=== PATIENT | male | born 1960 | race Caucasian/White ===

== ENCOUNTER 2017-04-05 11:03 | Inpatient (IN) | payer BC ==
[2017-04-05 12:16] LABS: Troponin I 0.015 ng/mL (< 0.028)
[2017-04-05 12:24] LABS: Actual Bicarbonate (HCO3a) 29.7 mEq/L (22-26); Base Excess (BEa) -0.5 mEq/L (0 (+/-) 2.5); Calcium, Ionized 1.2 mmol/L (1.12-1.30); Hematocrit-ABG 50.7 % (42.0-52.0); Hemoglobin (Hb) 15.5 g/dL (14.0-18.0); O2 Tension (PaO2) 141.9 mmHg (80.0-100.0); pH, Arterial 7.22 (7.35-7.45)
[2017-04-05 12:25] LABS: ALV-art Gradient 124.975 (0-20); Analyzer IN Cardio ER; CO2 Tension 74.9 mmHg (35.0-45.0); Puncture Site RRA
[2017-04-05] MEDS ORDERED: Oseltamivir 75 MG CAP PO SCH (13:00)
[2017-04-05] MEDS ORDERED: Acetaminophen 325 MG TAB PO PRN ×2 (13:24→13:51)
[2017-04-05] MEDS ORDERED: Ondansetron ODT 4 MG TAB SL PRN (13:24)
[2017-04-05] MEDS ORDERED: Ondansetron HCl/PF 4 MG/2 ML Vial IVP PRN ×2 (13:24→13:51)
[2017-04-05] MEDS ORDERED: Ondansetron ODT 4 MG TAB PO PRN (13:51)
[2017-04-05] MEDS ORDERED: Bisacodyl 5 MG TAB PO PRN (13:51)
[2017-04-05] MEDS ORDERED: Acetaminophen 650 MG Suppository PR PRN (13:51)
[2017-04-05 14:08] LABS: Actual Bicarbonate (HCO3a) 29.3 mEq/L (22-26); Base Excess (BEa) -0.5 mEq/L (0 (+/-) 2.5); Calcium, Ionized 1.1 mmol/L (1.12-1.30); Hematocrit-ABG 50.6 % (42.0-52.0); Hemoglobin (Hb) 15.3 g/dL (14.0-18.0); O2 Tension (PaO2) 82.5 mmHg (80.0-100.0)
[2017-04-05 14:13] LABS: pH, Arterial 7.23 (7.35-7.45)
[2017-04-05 14:14] LABS: CO2 Tension 71.8 mmHg (35.0-45.0)
[2017-04-05 14:15] LABS: Puncture Site RRA
[2017-04-05 14:26] VITALS: BMI 35.9
[2017-04-05] MEDS ORDERED: cefTRIAXone\\ROCEPHIN 1 GM in Sodium Chloride 0.9% 100 ML IVPB SCH (14:45)
[2017-04-05] MEDS ORDERED: Acetaminophen 500 MG TAB PO PRN (15:54)
[2017-04-05] MEDS: cefTRIAXone\\ROCEPHIN 1 GM, Syringe 0.4 ML in Sterile Water 9.6 ML SLOW IVP SCH (16:04)
[2017-04-05] MEDS: Azithromycin 500 MG in Sodium Chloride 0.9% 250 ML 250 ML IVPB SCH (16:10)
[2017-04-05] MEDS: Sodium Chloride 0.9% 1,000 ML IV SCH ×2 (16:11→21:10)
--- NOTE | 2017-04-05 17:57 | HP ---
PRIMARY CARE PHYSICIAN: Dr. Salmon. CHIEF COMPLAINT: Trouble breathing. HISTORY OF PRESENT ILLNESS: This is a 57-year-old white male without significant past medical history aside some bronchitis episodes more than 10 years ago that required inhalers. He reports that he has been feeling bad for about a week with increasing cough, eventually productive of real thick yellow sputum, and for the last 2-3 days, he had significant shortness of breath. He did start spiking fevers last couple days up to 101. The patient was unable to sleep last night secondary to difficulty breathing, so this morning he went in to the emergency room in [place]. There, he was found to be hypoxic with oxygen saturation in the 60s on room air and diffusely wheezing. He was given multiple nebulizer treatments as well as oxygen. He had a negative chest x-ray , positive influenza A, and he was transferred here for further management. In our emergency room, he was put on BiPAP with improvement in shortness of breath and feeling a lot less fatigued from struggling to breathe. His ABG done in the emergency room did show respiratory acidosis with CO2 retention. This was done after about 15 minutes on the BiPAP. The patient has had more nebs. Here he also had steroids. He had a dose of Zosyn and now he is getting his first dose of Tamiflu here in the MICU. The patient reports now he just feels really sleepy, but otherwise he is feeling much better. He did not get any sleep last night. PAST MEDICAL HISTORY: The patient denies though son reports that he does seem to stop breathing when he is sleeping if he tries to lay flat, so he may have some obstructive sleep apnea. PAST SURGICAL HISTORY: None. SOCIAL HISTORY: The patient smokes 3/4 to 1 pack a day for the last 30 years. No alcohol or illicit drug use. He is and lives with his . He is accompanied by son in the emergency room. He is employed by [employer]. FAMILY HISTORY: Dad and brother with alcoholism. ALLERGIES: No known drug allergies. MEDICATIONS: No regular medications. REVIEW OF SYSTEMS: CONSTITUTIONAL: No fevers and chills as per HPI. He has also had some headaches when he had the fever. EYES: No double vision or blurred vision. He has had some redness and drainage along with the other flu symptoms. ENT: Some mild nasal drainage and no sore throat. CARDIOVASCULAR: No chest pain. No palpitations or racing. HEART: He was noted to have tachycardia in the emergency room. PULMONARY: See HPI. GASTROINTESTINAL: No abdominal pain, no nausea or vomiting, no diarrhea or constipation. GENITOURINARY: No dysuria or hematuria. MUSCULOSKELETAL: He had some vague muscle aches, none currently. No neck pain. SKIN: No rashes or lesions noted. NEUROLOGIC: No numbness, tingling or focal weakness. PHYSICAL EXAMINATION: VITAL SIGNS: Blood pressure 130/85, pulse 123, respirations 23 on BiPAP, temperature 98.8, O2 sat ranging between 86% and 92% on BiPAP, 30% oxygen. GENERAL: This is a well-developed, obese white male, in no acute respiratory distress on BiPAP currently. He is a little somnolent, but arousable and oriented. HEENT: Pupils equal, round, and reactive to light. He does have a pink conjunctival injection bilaterally. Oropharynx with BiPAP mask on, so unable to further evaluate. NECK: Supple, no lymphadenopathy, no thyroid nodules or enlargement. HEART: Tachycardia with regular rhythm. No murmurs, rubs or gallops. LUNGS: Diffuse wheezing throughout and decreased breath sounds throughout. It is very tight sounding. ABDOMEN: Soft, nontender to palpation, normoactive bowel sounds, no hepatosplenomegaly or other masses. EXTREMITIES: No clubbing, cyanosis or edema. SKIN: No rashes or other lesions noted. NEUROLOGIC: The patient moves all extremities with equal strength. He has no facial droop. PSYCHIATRIC: Alert and oriented x3, normal mood and affect. LABORATORY DATA: CBC notable only for white blood cell count of 11.2 with 83% neutrophils. Coagulation profile normal except for a D-dimer 0.62. ABG done in our emergency room on BiPAP shows a pH of 7.22, pCO2 of 74.9, pO2 of 141, this is on 50% oxygen at that time. A complete metabolic panel was notable only for glucose of 130. The rest is normal. Cardiac marker set negative x2. Brain natriuretic peptide is negative. Lactic acid is negative. Chest x-ray, I did review the chest x-ray done in the [place] [facility] along with the radiologist's report, shows a normal cardiac silhouette, no infiltrates, no other abnormalities other than question of prominent hilar vasculature. ASSESSMENT AND PLAN: 1. Acute hypoxic hypercapnic respiratory failure, improved symptomatically on BiPAP and now little sleepy concerning for CO2 narcosis. We will repeat an ABG here and make sure his retention is not getting worse. We will keep his O2 sats in the high 80s to low 90s he most likely does have some underlying chronic obstructive pulmonary disease causes and chronic hypoxia along with obstructive sleep apnea. 2. Influenza A with respiratory complications. We will treat with Tamiflu 75 mg twice a day for 5 days and put the patient on contact precautions. 3. Likely obstructive sleep apnea. 4. Likely chronic obstructive pulmonary disease. 5. Tobacco abuse. We will give cessation counseling. 6. Gastrointestinal prophylaxis. Put the patient on Pepcid twice a day. 7. Deep venous thrombosis prophylaxis, the patient on Lovenox, SCDs and TEDs. 8. Code status: The patient is a FULL CODE. His medical decision maker would be his , Polly Torres. We will continue Solu-Medrol 40 mg q.6 hours and DuoNeb q.6 hours with q.4 p.r.n. I have also talked to Dr. Stephenson, he will come and evaluate the patient. We are getting a repeat ABG right now to see if he is having worsening of his respiratory failure. It is very possible that he may eventually need intubation and I have discussed with patient and he is agreeable for intubation should it be necessary. I spent 45 minutes of critical care time evaluating and managing this patient's critical respiratory failure. 13:30-14:15 BR[facility]
[2017-04-05] MEDS: Oseltamivir 75 MG CAP PO SCH (21:08)
[2017-04-05] MEDS: Ibuprofen 800 MG TAB PO PRN (21:08)
[2017-04-05] MEDS: Famotidine 20 MG TAB PO SCH (21:09)
[2017-04-05] MEDS: Docusate 100 MG CAP PO SCH (21:09)
--- NOTE | 2017-04-05 22:19 | CON ---
DATE OF CONSULTATION: 04/05/2017 HISTORY OF PRESENT ILLNESS: Papito Torres is a morbidly obese gentleman, 104 kilograms, [age]-year-old gentleman who have shortness of breath, flu-like symptoms, feeling bad, and headache. He had influenza swab which showed he had influenza A. He has had difficulty breathing and hypoxic with sats 85% on 4 liters, placed on BiPAP to which he sa ts are 93%. He says he feels somewhat better. He sees Dr. Salmon in [place], [place]. PAST MEDICAL HISTORY: Pertinent for symptoms of a classic sleep apnea. His son was at the bedside a nd I have spoken to him at length. He had been tested. He says he has been wheezing, but no fever o r chills, no sputum production. PAST MEDICAL HISTORY: COPD. PAST SURGICAL HISTORY: None. SOCIAL HISTORY: Alcohol: None. Tobacco: A pack a day for many years. CARDIAC MEDICATION: None. ALLERGIES: None as noted. PHYSICAL EXAMINATION: VITAL SIGNS: On examination sats 90% on BiPAP, temperature 99, pulse 132, respiration 17, blood pres sure 112/60. GENERAL: He is neurologically awake, alert, responsive. CHEST: Decreased breath sounds, no wheezing. CARDIAC: Normal S1, S2, no gallops. ABDOMEN: Soft. No masses. LABORATORY DATA: White count 11,000, H&H 7 and 21, platelet count 54. His electrolytes are normal. A pO2 of 82, pCO2 7.723 on a BiPAP. IMPRESSION: 1. Influenza A with associated possibly bronchopneumonia. I reviewed his chest x-ray. There are bi basilar infiltrates. 2. Morbid obesity, probably sleep apnea. His baseline bicarbonate on the blood gas was 29. PLAN: I agree with Tamiflu, IV fluids, empiric antibiotics. Hopefully, we had to intubate him. Thi s is consultation note with 50 minutes spent at the bedside counseling family. Direct patient care.
[2017-04-06 04:38] LABS: #Lymphocytes 0.4 thou/uL (1.20-3.40); #Monocytes 0.6 thou/uL (0.11-0.59); #Neutrophils 9.7 thou/uL (1.40-6.50); %Basophils 0.1 % (0.0-1.0); %Eosinophils 0.1 % (0.0-10.0); %Lymphocytes 3.7 % (21.0-51.0); %Monocytes 5.9 % (0.0-10.0); %Neutrophils 90.2 % (42.0-75.0); Hemoglobin 13.8 g/dL (14.0-18.0); Mean Corpuscular HGB CONC 31.3 g/dL (32.0-36.0); Mean Corpuscular Hemoglobin 30.1 pg (27.0-31.0); Mean Corpuscular Volume 96.3 fl (80.0-94.0); Mean Platelet Volume 8.1 fL (7.4-10.4); Platelet Count 166 thou/uL (130-400); RBC Distribution Width 12.3 % (11.5-14.5); Red Blood Cell (RBC) Count 4.59 mill/uL (4.70-6.10); White Blood Cell (WBC) Count 10.7 thou/uL (4.8-10.8)
[2017-04-06 04:53] LABS: Anion Gap 10 mmol/L (10-20); BUN (Urea Nitrogen) 16 mg/dL (8.4-25.7); Calc. Creatinine Clearance 160 mL/min (70-130); Calcium 8.5 mg/dL (7.8-10.44); Carbon Dioxide 30 mmol/L (22-29); Chloride 102 mmol/L (98-107); Estimated GFR-MDRD Greater than 90; Glucose 165 mg/dL (70-105); Potassium 5.5 mmol/L (3.5-5.1); Sodium 136 mmol/L (136-145)
[2017-04-06] MEDS: Sodium Chloride 0.9% 1,000 ML IV SCH ×2 (06:15→17:59)
[2017-04-06] MEDS: Famotidine 20 MG TAB PO SCH ×2 (09:21→20:19)
[2017-04-06] MEDS: Oseltamivir 75 MG CAP PO SCH ×2 (09:21→20:19)
[2017-04-06] MEDS: Enoxaparin Sodium 40 MG/0.4 ML SYRINGE SC SCH (09:22)
[2017-04-06] MEDS: Docusate 100 MG CAP PO SCH ×2 (09:23→20:19)
[2017-04-06] MEDS: Ibuprofen 800 MG TAB PO PRN (10:33)
--- NOTE | 2017-04-06 12:10 | PRG ---
DATE OF SERVICE: 04/06/2017 SUBJECTIVE: He feels a little better, but did use the BiPAP some last night. He does have an occasi onal cough. OBJECTIVE: VITAL SIGNS: Temperature is 96.3, pulse 106, blood pressure 117/68, O2 sats around 91% on 4 liters. HEENT: Unremarkable. NECK: No JVD. LUNGS: He has some fine expiratory wheezing bilaterally. CARDIOVASCULAR: S1, S2 regular. ABDOMEN: Soft. EXTREMITIES: No edema. LABORATORY DATA: White blood cell count 10.7, hematocrit 44.2, platelet count 166. Sodium 136, pota ssium 5.5, chloride 102, CO2 of 30, BUN 16, creatinine 0.8, glucose 165. ASSESSMENT: 1. Influenza A. 2. Chronic obstructive pulmonary disease exacerbation. 3. Probable underlying sleep apnea. PLAN: 1. Continue antibiotics and Tamiflu. 2. Continue breathing treatments. 3. Continue IV steroids. 3. Intermittent BiPAP as needed. If he does need BiPAP by the end of this afternoon, he may be able go out to the regular room.
--- NOTE | 2017-04-06 12:44 | PDOC.PN ---
- Subjective Encounter Start Date: 04/06/17 Encounter Start Time: 08:20 Pt seen for followup re: COPD exacerbation. Reports cough is better. No fevers or chills. - Objective Resuscitation Status: Resuscitation Status FULL:Full Resuscitation MAR Reviewed: Yes Vital Signs & Weight: Vital Signs (12 hours) Temp Pulse Pulse Pulse Resp BP BP 04/06/17 11:00 98.4 F 94 20 04/06/17 09:20 106 H 104 H 107/67 117/68 04/06/17 08:49 99 100 117/74 107/67 04/06/17 08:06 04/06/17 08:03 96 04/06/17 08:02 94 15 04/06/17 08:00 96.3 F L 96 12 04/06/17 07:00 96.3 F L 84 12 04/06/17 03:48 97.9 F 95 18 04/06/17 00:47 100 18 BP Pulse Ox Pulse Ox Pulse Ox 04/06/17 11:00 111/60 91 L 04/06/17 09:20 04/06/17 08:49 90 L 91 L 04/06/17 08:06 98 04/06/17 08:03 04/06/17 08:02 98 04/06/17 08:00 98 04/06/17 07:00 105/63 93 L 04/06/17 03:48 99/61 92 L 04/06/17 00:47 92 L Weight Weight 253 lb 1.6 oz I&O: 04/05/17 04/06/17 04/07/17 06:59 06:59 06:59 Intake Total 2910 Output Total 325 Balance 2585 Result Diagrams: 04/07/17 05:43 04/07/17 05:43 EKG Reviewed by me: Yes (Tele: NSR) Phys Exam - Physical Examination Obese HEENT: PERRLA, moist MMs, sclera anicteric, oral pharynx no lesions Neck: no nodes, no JVD, supple, full ROM Respiratory: no rales, no rhonchi, wheezing present S1, S2, tachy, reg Gastrointestinal: soft, non-tender, no distention, positive bowel sounds Musculoskeletal: pulses present Neurological: moves all 4 limbs Psychiatric: normal affect, A&O x 3 Skin: no rash, normal turgor, cap refill <2 seconds Dx/Plan (1) COPD exacerbation Code(s): J44.1 - CHRONIC OBSTRUCTIVE PULMONARY DISEASE W (ACUTE) EXACERBATION Status: Acute (2) Influenza A Code(s): J10.1 - FLU DUE TO OTH IDENT INFLUENZA VIRUS W OTH RESP MANIFEST Status: Acute (3) Hyperkalemia Code(s): E87.5 - HYPERKALEMIA Status: Acute (4) NEHEMIAH (obstructive sleep apnea) Code(s): G47.33 - OBSTRUCTIVE SLEEP APNEA (ADULT) (PEDIATRIC) Status: Chronic - Plan continue antibiotics, out of bed/ambulate, DVT proph w/SCDs * . Continue oxygen, steroids, bronchodilators. Continue antibiotics as below. BiPAP PRN. Continue Tamiflu. kayexalate, check potassium level in AM. Review of Systems - Review of Systems Constitutional: weakness. negative: fever, chills, sweats, malaise Respiratory: Cough, Sputum. negative: Dry, Shortness of Breath, Hemoptysis, SOB with Excertion, Pleuritic Pain, Wheezing Cardiovascular: negative: chest pain, palpitations, orthopnea, paroxysmal nocturnal dyspnea, edema, light headedness Genitourinary: negative: Dysuria, Frequency, Incontinence, Hematuria, Retention Skin: negative: Rash, Lesions, Yoan, Bruising - Medications/Allergies Allergies/Adverse Reactions: Allergies Allergy/AdvReac Type Severity Reaction Status Date / Time No Known Allergies Allergy Verified 04/05/17 14:24 Medications: Current Medications Acetaminophen (Tylenol) 650 mg [place] Q4H PRN PRN Reason: Headache/Fever or Pain Acetaminophen (Tylenol) 1,000 mg PO Q6H PRN PRN Reason: PAIN/FEVER 1ST LINE Last Admin: 04/05/17 16:04 Dose: 1,000 mg Albuterol/Ipratropium (Duoneb) 3 ml NEB [id number] PRN PRN Reason: SOB &/or Wheezing Albuterol/Ipratropium (Duoneb) 3 ml NEB [id number] [facility] Last Admin: 04/06/17 08:02 Dose: 3 ml Bisacodyl (Dulcolax) 10 mg PO DAILYPRN PRN PRN Reason: Constipation Docusate Sodium (Colace) 100 mg PO BID [facility] Last Admin: 04/06/17 09:23 Dose: Not Given Enoxaparin Sodium (Lovenox) 40 mg SC 0900 [facility] Last Admin: 04/06/17 09:22 Dose: 40 mg Famotidine (Pepcid) 20 mg PO BID [facility] Last Admin: 04/06/17 09:21 Dose: 20 mg Sodium Chloride (Normal Saline 0.9%) 1,000 mls @ 100 mls/hr IV .Q10H [facility] Last Admin: 04/06/17 06:15 Dose: 1,000 mls Azithromycin 500 mg/ Sodium (Chloride) 250 mls @ 250 mls/hr IVPB 1500 [facility] Last Admin: 04/05/17 16:10 Dose: 250 mls Ceftriaxone Sodium 1 gm/ (Syringe 0.4 ml/ Sterile Water) 10 mls @ 120 mls/hr SLOW IVP 1600 [facility] Last Admin: 04/05/17 16:04 Dose: 10 mls Ibuprofen (Motrin) 800 mg PO TIDPRN PRN PRN Reason: FEVER/PAIN 2ND LINE Last Admin: 04/06/17 10:33 Dose: 800 mg Methylprednisolone Sodium Succinate (Solu-Medrol) 40 mg IVP Q6HR [facility] Last Admin: 04/06/17 06:15 Dose: 40 mg Ondansetron HCl (Zofran Odt) 4 mg PO Q6H PRN PRN Reason: Nausea/Vomiting Ondansetron HCl (Zofran) 4 mg IVP Q6H PRN PRN Reason: Nausea/Vomiting Oseltamivir Phosphate (Tamiflu) 75 mg PO BID [facility] Stop: 04/10/17 09:01 Last Admin: 04/06/17 09:21 Dose: 75 mg
--- NOTE | 2017-04-06 14:50 | PQF ---
CLINICAL DOCUMENTATION IMPROVEMENT CLARIFICATION FORM: ICD-10 Updated PLEASE DO AN ADDENDUM TO THE PROGRESS NOTE WITH ANY DOCUMENTATION UPDATES OR ADDITIONS AND CARRY THROUGH TO DC SUMMARY. THANK YOU. DATE: 04/10/17 ATTN: DR. NEWTON Please exercise your independent, professional judgment in responding to the clarification form. Clinical indicators are provided on the bottom of this form for your review Please check appropriate box(s): [ ] Aspiration Pneumonia [ ] Aspiration Bronchitis [ ] Empirically treating Gram Negative Pneumonia [ ] Empirically treating Anaerobic Pneumonia [ ] Pneumonia secondary to (specify organism / underlying disease) [ ] Simple Pneumonia (community acquired - nosocomial) [ ] Bronchopneumonia [ ] Pneumonia of unknown etiology [x ] Other diagnosis _there is no pna [ ] Unable to determine In addition, please specify: Present on Admission (POA): [ ] Yes [ ] No [ ] Unable to determine For continuity of documentation, please document condition throughout progress notes and discharge summary. Thank You. CLINICAL INDICATORS - SIGNS / SYMPTOMS / LABS SATS 84% ON 4L O2 PROGRESS NOTE 04/05: "INFLUENZA A WITH ASSOCIATED POSSIBLY BRONCHOPNEUMONIA." RISKS: H/O COPD TREATMENT: IV AZITHROMYCIN (04/05-PRESENT) IV ROCEPHIN (04/05-PRESENT) IV SOLUMEDROL (04/05-PRESENT) DUONEBS (04/05-PRESENT) BIPAP (This form is maintained as a part of the permanent medical record) 2014 [employer] All Rights Reserved JANEL [email or web address] Office: [phone] [facility]
[2017-04-06] MEDS: Azithromycin 500 MG in Sodium Chloride 0.9% 250 ML 250 ML IVPB SCH (15:32)
[2017-04-06] MEDS: cefTRIAXone\\ROCEPHIN 1 GM, Syringe 0.4 ML in Sterile Water 9.6 ML SLOW IVP SCH (16:44)
[2017-04-07] MEDS: Sodium Chloride 0.9% 1,000 ML IV SCH (05:13)
[2017-04-07 06:03] LABS: #Lymphocytes 0.8 thou/uL (1.20-3.40); #Monocytes 1.2 thou/uL (0.11-0.59); #Neutrophils 14.4 thou/uL (1.40-6.50); %Eosinophils 0.1 % (0.0-10.0); %Lymphocytes 4.7 % (21.0-51.0); %Monocytes 7.2 % (0.0-10.0); Hemoglobin 14.2 g/dL (14.0-18.0); Mean Corpuscular HGB CONC 32.2 g/dL (32.0-36.0); Mean Corpuscular Hemoglobin 30.8 pg (27.0-31.0); Mean Corpuscular Volume 95.8 fl (80.0-94.0); Mean Platelet Volume 7.9 fL (7.4-10.4); Platelet Count 196 thou/uL (130-400); RBC Distribution Width 12.4 % (11.5-14.5); Red Blood Cell (RBC) Count 4.61 mill/uL (4.70-6.10); White Blood Cell (WBC) Count 16.3 thou/uL (4.8-10.8)
[2017-04-07 06:17] LABS: Anion Gap 14 mmol/L (10-20); BUN (Urea Nitrogen) 15 mg/dL (8.4-25.7); Calc. Creatinine Clearance 183 mL/min (70-130); Calcium 8.5 mg/dL (7.8-10.44); Carbon Dioxide 27 mmol/L (22-29); Chloride 105 mmol/L (98-107); Estimated GFR-MDRD Greater than 90; Glucose 133 mg/dL (70-105); Potassium 4.9 mmol/L (3.5-5.1); Sodium 141 mmol/L (136-145)
[2017-04-07] MEDS: Famotidine 20 MG TAB PO SCH ×2 (08:57→20:23)
[2017-04-07] MEDS: Docusate 100 MG CAP PO SCH ×2 (08:57→20:24)
[2017-04-07] MEDS: Enoxaparin Sodium 40 MG/0.4 ML SYRINGE SC SCH (08:59)
[2017-04-07] MEDS: Oseltamivir 75 MG CAP PO SCH ×2 (09:00→20:23)
[2017-04-07] MEDS ORDERED: guaiFENesin ER 600 MG TAB PO SCH (09:30)
--- NOTE | 2017-04-07 11:19 | EKG ---
Test Reason : SOB Blood Pressure : / mmHG Vent. Rate : 130 BPM Atrial Rate : 130 BPM P-R Int : 132 ms QRS Dur : 094 ms QT Int : 300 ms P-R-T Axes : 073 072 053 degrees QTc Int : 441 ms Sinus tachycardia Otherwise normal ECG Confirmed by BILLY GOOD M.D. ([id number]), clinical editor JUDY NOE ([id number]) on 04/07/2017 11:18:25 AM Referred By: Confirmed By:BILLY GOOD M.D.
--- NOTE | 2017-04-07 11:23 | PRG ---
DATE OF SERVICE: 04/07/2017 SUBJECTIVE: He feels better. He did not require BiPAP last night. PHYSICAL EXAMINATION: VITAL SIGNS: Temperature 98.2, pulse 86, respirations 22, O2 sat 92% on 2 liters, blood pressure 120 /82. HEENT: Unremarkable. NECK: No JVD. LUNGS: Clear, but distant. CARDIAC: S1 and S2 regular. ABDOMEN: Soft. EXTREMITIES: No edema. LABORATORY DATA: White blood cell count 16.3, hematocrit 44.2, platelet count 196. Sodium 141, pota ssium 4.9, chloride 105, CO2 of 27, BUN 15, creatinine 0.7, glucose 133. ASSESSMENT: 1. Influenza A. 2. Chronic obstructive pulmonary disease exacerbation. PLAN: 1. Move to medical floor. 2. Continue antibiotics, Tamiflu, IV steroids and breathing treatments.
[2017-04-07] MEDS: Diabetic Tussin 200 MG/10 ML UDCUP PO PRN ×2 (12:23→17:19)
--- NOTE | 2017-04-07 12:45 | PDOC.PN ---
- Subjective Encounter Start Date: 04/07/17 Encounter Start Time: 08:40 Pt seen for followup re: COP_D exacerbation. Still has cough, not expectorating much sputum. Denies fevers or chills. - Objective Resuscitation Status: Resuscitation Status FULL:Full Resuscitation Vital Signs & Weight: Vital Signs (12 hours) Temp Pulse Resp BP Pulse Ox 04/07/17 11:44 98.1 F 85 20 120/36 L 93 L 04/07/17 08:00 98.2 F 86 22 H 92 L 04/07/17 07:00 98.2 F 86 22 H 120/82 92 L 04/07/17 03:30 98.4 F 100 14 111/65 90 L Weight Weight 156 lb 12.8 oz I&O: 04/06/17 04/07/17 04/08/17 06:59 06:59 06:59 Intake Total 2910 3935 Output Total 325 725 Balance 2585 3210 Result Diagrams: 04/07/17 05:43 04/07/17 05:43 Phys Exam - Physical Examination Constitutional: NAD HEENT: moist MMs Neck: supple, full ROM Respiratory: clear to auscultation bilateral Cardiovascular: RRR Gastrointestinal: soft Neurological: moves all 4 limbs Psychiatric: normal affect Skin: no rash Dx/Plan (1) COPD exacerbation Code(s): J44.1 - CHRONIC OBSTRUCTIVE PULMONARY DISEASE W (ACUTE) EXACERBATION Status: Acute (2) Influenza A Code(s): J10.1 - FLU DUE TO OTH IDENT INFLUENZA VIRUS W OTH RESP MANIFEST Status: Acute (3) NEHEMIAH (obstructive sleep apnea) Code(s): G47.33 - OBSTRUCTIVE SLEEP APNEA (ADULT) (PEDIATRIC) Status: Chronic (4) Hyperkalemia Code(s): E87.5 - HYPERKALEMIA Status: Resolved - Plan * . Continue bronchodilators, steroids. Continue Tamiflu. Start guaifenesin. Review of Systems - Review of Systems Constitutional: negative: fever, chills, sweats, weakness, malaise Respiratory: Cough, Dry. negative: Shortness of Breath, Hemoptysis, SOB with Excertion, Pleuritic Pain, Sputum, Wheezing Cardiovascular: negative: chest pain, palpitations, orthopnea, paroxysmal nocturnal dyspnea, edema, light headedness - Medications/Allergies Allergies/Adverse Reactions: Allergies Allergy/AdvReac Type Severity Reaction Status Date / Time No Known Allergies Allergy Verified 04/05/17 14:24 Medications: Current Medications Acetaminophen (Tylenol) 650 mg CO Q4H PRN PRN Reason: Headache/Fever or Pain Acetaminophen (Tylenol) 1,000 mg PO Q6H PRN PRN Reason: PAIN/FEVER 1ST LINE Last Admin: 04/05/17 16:04 Dose: 1,000 mg Albuterol/Ipratropium (Duoneb) 3 ml NEB [id number] PRN PRN Reason: SOB &/or Wheezing Albuterol/Ipratropium (Duoneb) 3 ml NEB [id number] [facility] Last Admin: 04/07/17 08:02 Dose: 3 ml Bisacodyl (Dulcolax) 10 mg PO DAILYPRN PRN PRN Reason: Constipation Docusate Sodium (Colace) 100 mg PO BID [facility] Last Admin: 04/07/17 08:57 Dose: Not Given Enoxaparin Sodium (Lovenox) 40 mg SC 0900 [facility] Last Admin: 04/07/17 08:59 Dose: 40 mg Famotidine (Pepcid) 20 mg PO BID [facility] Last Admin: 04/07/17 08:57 Dose: Not Given Guaifenesin (Mucinex) 600 mg PO TID [facility] Guaifenesin (Robitussin Sf) 200 mg PO Q4H PRN PRN Reason: Cough Last Admin: 04/07/17 12:23 Dose: 200 mg Azithromycin 500 mg/ Sodium (Chloride) 250 mls @ 250 mls/hr IVPB 1500 [facility] Last Admin: 04/06/17 15:32 Dose: 250 mls Ceftriaxone Sodium 1 gm/ (Syringe 0.4 ml/ Sterile Water) 10 mls @ 120 mls/hr SLOW IVP 1600 [facility] Last Admin: 04/06/17 16:44 Dose: 10 mls Ibuprofen (Motrin) 800 mg PO TIDPRN PRN PRN Reason: FEVER/PAIN 2ND LINE Last Admin: 04/06/17 10:33 Dose: 800 mg Methylprednisolone Sodium Succinate (Solu-Medrol) 40 mg IVP Q6HR [facility] Last Admin: 04/07/17 11:12 Dose: 40 mg Ondansetron HCl (Zofran Odt) 4 mg PO Q6H PRN PRN Reason: Nausea/Vomiting Ondansetron HCl (Zofran) 4 mg IVP Q6H PRN PRN Reason: Nausea/Vomiting Oseltamivir Phosphate (Tamiflu) 75 mg PO BID [facility] Stop: 04/10/17 09:01 Last Admin: 04/07/17 09:00 Dose: 75 mg Sodium Chloride (Flush - Normal Saline) 10 ml IVF PRN PRN PRN Reason: Saline Flush Sodium Chloride (Flush - Normal Saline) 10 ml IVF BID [facility]
[2017-04-07] MEDS: Azithromycin 500 MG in Sodium Chloride 0.9% 250 ML 250 ML IVPB SCH (14:51)
[2017-04-07] MEDS: guaiFENesin ER 600 MG TAB PO SCH ×2 (14:51→20:23)
[2017-04-07] MEDS: cefTRIAXone\\ROCEPHIN 1 GM, Syringe 0.4 ML in Sterile Water 9.6 ML SLOW IVP SCH (17:11)
[2017-04-08 05:18] LABS: #Lymphocytes 0.7 thou/uL (1.20-3.40); #Monocytes 0.7 thou/uL (0.11-0.59); #Neutrophils 12.2 thou/uL (1.40-6.50); %Basophils 0.2 % (0.0-1.0); %Eosinophils 0.2 % (0.0-10.0); %Lymphocytes 5.4 % (21.0-51.0); %Monocytes 5.1 % (0.0-10.0); %Neutrophils 89.1 % (42.0-75.0); Hemoglobin 14.2 g/dL (14.0-18.0); Mean Corpuscular HGB CONC 32.3 g/dL (32.0-36.0); Mean Corpuscular Hemoglobin 31.1 pg (27.0-31.0); Mean Corpuscular Volume 96.3 fl (80.0-94.0); Mean Platelet Volume 7.7 fL (7.4-10.4); Platelet Count 197 thou/uL (130-400); RBC Distribution Width 12.3 % (11.5-14.5); Red Blood Cell (RBC) Count 4.57 mill/uL (4.70-6.10); White Blood Cell (WBC) Count 13.7 thou/uL (4.8-10.8)
[2017-04-08 05:26] LABS: Anion Gap 12 mmol/L (10-20); BUN (Urea Nitrogen) 16 mg/dL (8.4-25.7); Calc. Creatinine Clearance 106 mL/min (70-130); Carbon Dioxide 34 mmol/L (22-29); Chloride 100 mmol/L (98-107); Estimated GFR-MDRD Greater than 90; Glucose 147 mg/dL (70-105); Potassium 4.8 mmol/L (3.5-5.1); Sodium 141 mmol/L (136-145)
[2017-04-08] MEDS: guaiFENesin ER 600 MG TAB PO SCH ×3 (08:25→20:54)
[2017-04-08] MEDS: Azithromycin 250 MG TAB PO SCH (08:26)
[2017-04-08] MEDS: Docusate 100 MG CAP PO SCH ×2 (08:26→20:59)
[2017-04-08] MEDS: Famotidine 20 MG TAB PO SCH ×2 (08:27→20:59)
[2017-04-08] MEDS: Enoxaparin Sodium 40 MG/0.4 ML SYRINGE SC SCH (08:27)
[2017-04-08] MEDS: Diabetic Tussin 200 MG/10 ML UDCUP PO PRN ×2 (08:28→17:30)
[2017-04-08] MEDS: Oseltamivir 75 MG CAP PO SCH ×2 (08:28→20:55)
--- NOTE | 2017-04-08 13:56 | PDOC.PN ---
- Subjective Encounter Start Date: 04/08/17 Encounter Start Time: 09:20 Pt seen for followup re: COPD exacerbation. Cough+, shortness of breath is better. - Objective Resuscitation Status: Resuscitation Status FULL:Full Resuscitation MAR Reviewed: Yes Vital Signs & Weight: Vital Signs (12 hours) Temp Pulse Resp BP Pulse Ox 04/08/17 12:23 86 18 91 L 04/08/17 08:28 97.4 F L 95 18 147/92 H 91 L 04/08/17 08:00 97.4 F L 95 18 91 L 04/08/17 07:18 84 14 94 L Weight Weight 156 lb 12.8 oz I&O: 04/07/17 04/08/17 04/09/17 06:59 06:59 06:59 Intake Total 3935 1861 Output Total 725 Balance 3210 1861 Result Diagrams: 04/08/17 04:22 04/08/17 04:22 Phys Exam - Physical Examination Constitutional: NAD HEENT: moist MMs Neck: supple Respiratory: no rales, no rhonchi, wheezing present Cardiovascular: RRR Gastrointestinal: soft Neurological: moves all 4 limbs Psychiatric: normal affect Dx/Plan (1) COPD exacerbation Code(s): J44.1 - CHRONIC OBSTRUCTIVE PULMONARY DISEASE W (ACUTE) EXACERBATION Status: Acute (2) Influenza A Code(s): J10.1 - FLU DUE TO OTH IDENT INFLUENZA VIRUS W OTH RESP MANIFEST Status: Acute (3) NEHEMIAH (obstructive sleep apnea) Code(s): G47.33 - OBSTRUCTIVE SLEEP APNEA (ADULT) (PEDIATRIC) Status: Chronic (4) Hyperkalemia Code(s): E87.5 - HYPERKALEMIA Status: Resolved - Plan * . Continue oxygen, steroids, bronchodilators. Clinically improving. Continue tamiflu. Review of Systems - Review of Systems Respiratory: Cough, SOB with Excertion, Wheezing. negative: Dry, Shortness of Breath, Hemoptysis, Pleuritic Pain, Sputum Cardiovascular: negative: chest pain, palpitations, orthopnea, paroxysmal nocturnal dyspnea, edema, light headedness - Medications/Allergies Allergies/Adverse Reactions: Allergies Allergy/AdvReac Type Severity Reaction Status Date / Time No Known Allergies Allergy Verified 04/05/17 14:24 Medications: Current Medications Acetaminophen (Tylenol) 650 mg [place] Q4H PRN PRN Reason: Headache/Fever or Pain Acetaminophen (Tylenol) 1,000 mg PO Q6H PRN PRN Reason: PAIN/FEVER 1ST LINE Last Admin: 04/05/17 16:04 Dose: 1,000 mg Albuterol/Ipratropium (Duoneb) 3 ml NEB [id number] PRN PRN Reason: SOB &/or Wheezing Albuterol/Ipratropium (Duoneb) 3 ml NEB [id number] [facility] Last Admin: 04/08/17 12:23 Dose: 3 ml Azithromycin (Zithromax) 250 mg PO DAILY [facility] Stop: 04/11/17 09:01 Last Admin: 04/08/17 08:26 Dose: 250 mg Bisacodyl (Dulcolax) 10 mg PO DAILYPRN PRN PRN Reason: Constipation Docusate Sodium (Colace) 100 mg PO BID [facility] Last Admin: 04/08/17 08:26 Dose: Not Given Enoxaparin Sodium (Lovenox) 40 mg SC 0900 [facility] Last Admin: 04/08/17 08:27 Dose: Not Given Famotidine (Pepcid) 20 mg PO BID [facility] Last Admin: 04/08/17 08:27 Dose: Not Given Guaifenesin (Mucinex) 600 mg PO TID [facility] Last Admin: 04/08/17 08:25 Dose: 600 mg Guaifenesin (Robitussin Sf) 200 mg PO Q4H PRN PRN Reason: Cough Last Admin: 04/08/17 08:28 Dose: 200 mg Ceftriaxone Sodium 1 gm/ (Syringe 0.4 ml/ Sterile Water) 10 mls @ 120 mls/hr SLOW IVP 1600 [facility] Last Admin: 04/07/17 17:11 Dose: 10 mls Ibuprofen (Motrin) 800 mg PO TIDPRN PRN PRN Reason: FEVER/PAIN 2ND LINE Last Admin: 04/06/17 10:33 Dose: 800 mg Methylprednisolone Sodium Succinate (Solu-Medrol) 40 mg IVP Q6HR [facility] Last Admin: 04/08/17 12:13 Dose: 40 mg Ondansetron HCl (Zofran Odt) 4 mg PO Q6H PRN PRN Reason: Nausea/Vomiting Ondansetron HCl (Zofran) 4 mg IVP Q6H PRN PRN Reason: Nausea/Vomiting Oseltamivir Phosphate (Tamiflu) 75 mg PO BID [facility] Stop: 04/10/17 09:01 Last Admin: 04/08/17 08:28 Dose: 75 mg Sodium Chloride (Flush - Normal Saline) 10 ml IVF PRN PRN PRN Reason: Saline Flush Sodium Chloride (Flush - Normal Saline) 10 ml IVF BID [facility] Last Admin: 04/08/17 08:29 Dose: 10 ml
--- NOTE | 2017-04-08 14:30 | PRG ---
DATE OF SERVICE: 04/08/2017 SUBJECTIVE: The patient is doing better. He wants to have a workup for sleep apnea when he leaves [facility]. OBJECTIVE: VITAL SIGNS: On exam, temperature is 97.4, pulse 95, respirations 18, O2 sat 91% on 3 liters, blood pressure 147/92. HEENT: Unremarkable. NECK: No JVD. LUNGS: Clear without wheezing. CARDIAC: S1 and S2 regular. ABDOMEN: Soft. EXTREMITIES: No edema. LABORATORY DATA: White blood cell count 13.7, hematocrit 44, platelet count 197. Sodium 141, potass ium 4.8, chloride 100, CO2 34, BUN 16, creatinine 0.7, glucose 147. ASSESSMENT: 1. Influenza A. 2. Chronic obstructive pulmonary disease with exacerbation. PLAN: He is probably ready for discharge soon, he may need home O2 temporarily. I will give my offi ce to set him up for a sleep study as an outpatient. I will go ahead and change him over to p.o. mele roids and p.o. antibiotics.
[2017-04-08] MEDS: predniSONE 20 MG TAB PO SCH (20:55)
[2017-04-09 05:03] LABS: #Lymphocytes 1.1 thou/uL (1.20-3.40); #Monocytes 1.1 thou/uL (0.11-0.59); #Neutrophils 9.6 thou/uL (1.40-6.50); %Eosinophils 0.2 % (0.0-10.0); %Lymphocytes 9.6 % (21.0-51.0); %Monocytes 9.6 % (0.0-10.0); %Neutrophils 80.6 % (42.0-75.0); Hemoglobin 13.8 g/dL (14.0-18.0); Mean Corpuscular HGB CONC 31.8 g/dL (32.0-36.0); Mean Corpuscular Hemoglobin 30.7 pg (27.0-31.0); Mean Corpuscular Volume 96.6 fl (80.0-94.0); Platelet Count 199 thou/uL (130-400); RBC Distribution Width 12.2 % (11.5-14.5); Red Blood Cell (RBC) Count 4.49 mill/uL (4.70-6.10); White Blood Cell (WBC) Count 11.9 thou/uL (4.8-10.8)
[2017-04-09 05:10] LABS: Anion Gap 12 mmol/L (10-20); BUN (Urea Nitrogen) 18 mg/dL (8.4-25.7); Calc. Creatinine Clearance 108 mL/min (70-130); Calcium 9.3 mg/dL (7.8-10.44); Carbon Dioxide 36 mmol/L (22-29); Chloride 100 mmol/L (98-107); Estimated GFR-MDRD Greater than 90; Glucose 137 mg/dL (70-105); Potassium 5.1 mmol/L (3.5-5.1); Sodium 143 mmol/L (136-145)
[2017-04-09] MEDS: Cefdinir 300 MG CAP PO SCH (08:03)
[2017-04-09] MEDS: guaiFENesin ER 600 MG TAB PO SCH ×3 (08:03→20:15)
[2017-04-09] MEDS: predniSONE 20 MG TAB PO SCH (08:04)
[2017-04-09] MEDS: Azithromycin 250 MG TAB PO SCH (08:04)
[2017-04-09] MEDS: Oseltamivir 75 MG CAP PO SCH ×2 (08:04→20:15)
[2017-04-09] MEDS: Docusate 100 MG CAP PO SCH ×2 (08:14→20:13)
[2017-04-09] MEDS: Diabetic Tussin 200 MG/10 ML UDCUP PO PRN (08:14)
[2017-04-09] MEDS: Enoxaparin Sodium 40 MG/0.4 ML SYRINGE SC SCH (08:14)
[2017-04-09] MEDS: Famotidine 20 MG TAB PO SCH ×2 (08:14→20:13)
--- NOTE | 2017-04-09 14:28 | PDOC.PN ---
- Subjective Encounter Start Date: 04/09/17 Encounter Start Time: 11:00 Subjective: sob better, still cant bring up sputum -: is on 2 liters nc with spo2 of 93% - Objective Resuscitation Status: Resuscitation Status FULL:Full Resuscitation MAR Reviewed: Yes Vital Signs & Weight: Vital Signs (12 hours) Temp Pulse Resp BP Pulse Ox 04/09/17 08:00 98.0 F 74 20 93 L 04/09/17 07:35 98 F 74 16 133/91 H 94 L Weight Weight 156 lb 12.8 oz I&O: 04/08/17 04/09/17 04/10/17 06:59 06:59 06:59 Intake Total 1861 720 Balance 1861 720 Result Diagrams: 04/09/17 04:24 04/09/17 04:24 Phys Exam - Physical Examination HEENT: PERRLA, moist MMs Neck: no JVD, supple Respiratory: no rales rhonchi++ Cardiovascular: RRR, no significant murmur Gastrointestinal: soft, non-tender, no distention, positive bowel sounds Musculoskeletal: no edema, pulses present Neurological: non-focal, moves all 4 limbs Psychiatric: A&O x 3 Dx/Plan (1) COPD exacerbation Code(s): J44.1 - CHRONIC OBSTRUCTIVE PULMONARY DISEASE W (ACUTE) EXACERBATION Status: Acute (2) Influenza A Code(s): J10.1 - FLU DUE TO OTH IDENT INFLUENZA VIRUS W OTH RESP MANIFEST Status: Acute (3) NEHEMIAH (obstructive sleep apnea) Code(s): G47.33 - OBSTRUCTIVE SLEEP APNEA (ADULT) (PEDIATRIC) Status: Suspected (4) Hyperkalemia Code(s): E87.5 - HYPERKALEMIA Status: Resolved - Plan is on omnicef and oral zithromax -: prednisone 20mg bid -: nebs, mucinex, tessalon -: add i.spirometry -: to amb as tolerated, wean oxygen to spo2 of 90% * . Review of Systems - Medications/Allergies Allergies/Adverse Reactions: Allergies Allergy/AdvReac Type Severity Reaction Status Date / Time No Known Allergies Allergy Verified 04/05/17 14:24 Medications: Current Medications Acetaminophen (Tylenol) 650 mg OR Q4H PRN PRN Reason: Headache/Fever or Pain Acetaminophen (Tylenol) 1,000 mg PO Q6H PRN PRN Reason: PAIN/FEVER 1ST LINE Last Admin: 04/05/17 16:04 Dose: 1,000 mg Albuterol/Ipratropium (Duoneb) 3 ml NEB [id number] PRN PRN Reason: SOB &/or Wheezing Albuterol/Ipratropium (Duoneb) 3 ml NEB [id number] [facility] Last Admin: 04/09/17 11:11 Dose: Not Given Azithromycin (Zithromax) 250 mg PO DAILY [facility] Stop: 04/11/17 09:01 Last Admin: 04/09/17 08:04 Dose: 250 mg Bisacodyl (Dulcolax) 10 mg PO DAILYPRN PRN PRN Reason: Constipation Cefdinir (Omnicef) 600 mg PO DAILY [facility] Last Admin: 04/09/17 08:03 Dose: 600 mg Docusate Sodium (Colace) 100 mg PO BID [facility] Last Admin: 04/09/17 08:14 Dose: Not Given Enoxaparin Sodium (Lovenox) 40 mg SC 0900 [facility] Last Admin: 04/09/17 08:14 Dose: Not Given Famotidine (Pepcid) 20 mg PO BID [facility] Last Admin: 04/09/17 08:14 Dose: Not Given Guaifenesin (Mucinex) 600 mg PO TID [facility] Last Admin: 04/09/17 14:18 Dose: 600 mg Guaifenesin (Robitussin Sf) 200 mg PO Q4H PRN PRN Reason: Cough Last Admin: 04/09/17 08:14 Dose: 200 mg Ibuprofen (Motrin) 800 mg PO TIDPRN PRN PRN Reason: FEVER/PAIN 2ND LINE Last Admin: 04/06/17 10:33 Dose: 800 mg Ondansetron HCl (Zofran Odt) 4 mg PO Q6H PRN PRN Reason: Nausea/Vomiting Ondansetron HCl (Zofran) 4 mg IVP Q6H PRN PRN Reason: Nausea/Vomiting Oseltamivir Phosphate (Tamiflu) 75 mg PO BID [facility] Stop: 04/10/17 09:01 Last Admin: 04/09/17 08:04 Dose: 75 mg Prednisone (Prednisone) 20 mg PO BID [facility] Last Admin: 04/09/17 08:04 Dose: 20 mg Sodium Chloride (Flush - Normal Saline) 10 ml IVF PRN PRN PRN Reason: Saline Flush Sodium Chloride (Flush - Normal Saline) 10 ml IVF BID [id number] Last Admin: 04/09/17 08:15 Dose: 10 ml
[2017-04-09] MEDS ORDERED: Sodium Chloride 0.9% 1,000 ML IV SCH (14:30)
[2017-04-09] MEDS ORDERED: Furosemide 20 MG/2 ML VIAL SLOW IVP SCH (19:45)
--- NOTE | 2017-04-09 22:07 | PRG ---
DATE OF SERVICE: 04/09/2017 SERVICE: Pulmonary Medicine. INTERVAL HISTORY: The patient is doing fine from a respiratory standpoint. He is breathing comforta jonny. That being said, he has desaturation with exertion or movement. He does not have any conversat ional dyspnea. On 3 L nasal cannula, the saturations are only 90%. With that, he is fairly comforta ble, but does notice the increased work of breathing with exertion. He has been on IV fluids since eing here. He is also noting increasing lower extremity swelling. PHYSICAL EXAMINATION: VITAL SIGNS: Afebrile, pulse 69, blood pressure 154/99, respirations 20, saturation 91% on 3 L nasal cannula. GENERAL: The patient is awake, alert, in no apparent distress. LUNGS: Excellent air entry. Dependent crackles are minimal. There is a slightly prolonged expirato ry phase. I do not appreciate wheezing or rhonchi. HEART: Normal rate, regular. ABDOMEN: Soft, nontender, nondistended, bowel sounds positive. MUSCULOSKELETAL: No cyanosis or clubbing. There is 1-2+ pitting in the bilateral lower extremities. NEUROLOGIC: Grossly nonfocal. LABORATORY DATA: WBC 11.9, hemoglobin 13.8, platelets 199,000. Basic metabolic profile was essentia lly unremarkable. His bicarbonate is currently 36 with a sodium that is increasing. ASSESSMENT: 1. Acute hypoxic respiratory failure. 2. Chronic obstructive pulmonary disease with acute exacerbation secondary to influenza A. 3. Volume overload. PLAN: I will give him a dose of Lasix today and tomorrow morning. Once he is off oxygen, he will be stable for transition home. Truth be told, if we can arrange for outpatient oxygen for the next sun, I think it would be reasonable to get him out sooner. Either way, he has been switched over to p .o. antibiotics and steroids. We can complete a 5-day course of both. In the outpatient setting, he will need to follow up with Dr. Rockwell to see about investigating sleep apnea.
[2017-04-10] MEDS: Cefdinir 300 MG CAP PO SCH (07:44)
[2017-04-10] MEDS: predniSONE 20 MG TAB PO SCH (07:44)
[2017-04-10] MEDS: guaiFENesin ER 600 MG TAB PO SCH ×3 (07:44→20:30)
[2017-04-10] MEDS: Oseltamivir 75 MG CAP PO SCH (07:44)
[2017-04-10] MEDS: Famotidine 20 MG TAB PO SCH ×2 (07:44→20:29)
[2017-04-10] MEDS: Enoxaparin Sodium 40 MG/0.4 ML SYRINGE SC SCH ×2 (07:45→07:58)
[2017-04-10] MEDS: Azithromycin 250 MG TAB PO SCH (07:45)
[2017-04-10] MEDS: Docusate 100 MG CAP PO SCH ×3 (07:45→20:29)
[2017-04-10] MEDS: Furosemide 20 MG/2 ML VIAL SLOW IVP SCH (07:45)
[2017-04-10 10:17] LABS: Anion Gap 16 mmol/L (10-20); BUN (Urea Nitrogen) 19 mg/dL (8.4-25.7); Calc. Creatinine Clearance 92 mL/min (70-130); Carbon Dioxide 35 mmol/L (22-29); Chloride 95 mmol/L (98-107); Estimated GFR-MDRD 87; Glucose 101 mg/dL (70-105); Potassium 3.9 mmol/L (3.5-5.1); Sodium 142 mmol/L (136-145)
--- NOTE | 2017-04-10 12:26 | PDOC.PN ---
- Subjective Encounter Start Date: 04/10/17 Encounter Start Time: 10:45 Subjective: breathing better, has diuresed well -: still on 2 liters nc with spo2 around 92% - Objective Resuscitation Status: Resuscitation Status FULL:Full Resuscitation MAR Reviewed: Yes Vital Signs & Weight: Vital Signs (12 hours) Temp Pulse Resp BP 04/10/17 08:21 97.6 F 82 16 152/91 H 04/10/17 07:59 97.4 F L 69 20 Weight Weight 156 lb 12.8 oz I&O: 04/09/17 04/10/17 04/11/17 06:59 06:59 06:59 Intake Total 720 2430 Balance 720 2430 Result Diagrams: 04/09/17 04:24 04/10/17 08:40 Phys Exam - Physical Examination HEENT: PERRLA, moist MMs Neck: no JVD, supple Respiratory: no wheezing, no rales Cardiovascular: RRR, no significant murmur Gastrointestinal: soft, non-tender, positive bowel sounds Musculoskeletal: no edema, pulses present Neurological: non-focal, moves all 4 limbs Psychiatric: A&O x 3 Dx/Plan (1) COPD exacerbation Code(s): J44.1 - CHRONIC OBSTRUCTIVE PULMONARY DISEASE W (ACUTE) EXACERBATION Status: Acute (2) Influenza A Code(s): J10.1 - FLU DUE TO OTH IDENT INFLUENZA VIRUS W OTH RESP MANIFEST Status: Acute (3) NEHEMIAH (obstructive sleep apnea) Code(s): G47.33 - OBSTRUCTIVE SLEEP APNEA (ADULT) (PEDIATRIC) Status: Suspected (4) Hyperkalemia Code(s): E87.5 - HYPERKALEMIA Status: Resolved - Plan electrolytes are stable -: recieved 2 doses of lasix from yesterday -: check ambulatory spo2 this afternoon and dc oxygent if spo2>90% -: is on zithromax and omnicef, oral prednisone, nebs * . Review of Systems - Medications/Allergies Allergies/Adverse Reactions: Allergies Allergy/AdvReac Type Severity Reaction Status Date / Time No Known Allergies Allergy Verified 04/05/17 14:24 Medications: Current Medications Acetaminophen (Tylenol) 650 mg [place] Q4H PRN PRN Reason: Headache/Fever or Pain Acetaminophen (Tylenol) 1,000 mg PO Q6H PRN PRN Reason: PAIN/FEVER 1ST LINE Last Admin: 04/05/17 16:04 Dose: 1,000 mg Albuterol/Ipratropium (Duoneb) 3 ml NEB [id number] PRN PRN Reason: SOB &/or Wheezing Albuterol/Ipratropium (Duoneb) 3 ml NEB [id number] [facility] Last Admin: 04/10/17 12:02 Dose: 3 ml Azithromycin (Zithromax) 250 mg PO DAILY [facility] Stop: 04/11/17 09:01 Last Admin: 04/10/17 07:45 Dose: 250 mg Bisacodyl (Dulcolax) 10 mg PO DAILYPRN PRN PRN Reason: Constipation Cefdinir (Omnicef) 600 mg PO DAILY [facility] Last Admin: 04/10/17 07:44 Dose: 600 mg Docusate Sodium (Colace) 100 mg PO BID [facility] Last Admin: 04/10/17 07:58 Dose: Not Given Enoxaparin Sodium (Lovenox) 40 mg SC 0900 [facility] Last Admin: 04/10/17 07:58 Dose: Not Given Famotidine (Pepcid) 20 mg PO BID [facility] Last Admin: 04/10/17 07:44 Dose: 20 mg Furosemide (Lasix) 20 mg SLOW IVP DAILY [facility] Last Admin: 04/10/17 07:45 Dose: 20 mg Guaifenesin (Mucinex) 600 mg PO TID [facility] Last Admin: 04/10/17 07:44 Dose: 600 mg Guaifenesin (Robitussin Sf) 200 mg PO Q4H PRN PRN Reason: Cough Last Admin: 04/09/17 08:14 Dose: 200 mg Ibuprofen (Motrin) 800 mg PO TIDPRN PRN PRN Reason: FEVER/PAIN 2ND LINE Last Admin: 04/06/17 10:33 Dose: 800 mg Ondansetron HCl (Zofran Odt) 4 mg PO Q6H PRN PRN Reason: Nausea/Vomiting Ondansetron HCl (Zofran) 4 mg IVP Q6H PRN PRN Reason: Nausea/Vomiting Prednisone (Prednisone) 40 mg PO DAILY [facility] Last Admin: 04/10/17 07:44 Dose: 40 mg Sodium Chloride (Flush - Normal Saline) 10 ml IVF PRN PRN PRN Reason: Saline Flush Sodium Chloride (Flush - Normal Saline) 10 ml IVF BID [facility] Last Admin: 04/10/17 07:58 Dose: 10 ml
--- NOTE | 2017-04-10 16:05 | PRG ---
DATE OF SERVICE: 04/10/2017 Mr. Torres says he is feeling better. He is not back to his baseline. He says he had no shortness o f breath prior to this admission. He was a smoker up until this admission. OBJECTIVE: VITAL SIGNS: His heart rate is 82. He is afebrile, respiratory rate 16, blood pressure 152/91. RADHA GS: Distant and clear. HEART: Regular rhythm. ABDOMEN: Soft. LABORATORY DATA: There is no new lab. IMPRESSION: 1. Respiratory failure on presentation requiring noninvasive ventilation. 2. ? underlying obstructive lung disease. He denies having any dyspnea on exertion prior to this ad mission. Hopefully, we will see significant improvement in his lung function after his discharge from the hosp ital. I will be happy to follow him as an outpatient if he is willing to come over for appointments.
[2017-04-10] MEDS: Ibuprofen 800 MG TAB PO PRN (20:35)
[2017-04-11] MEDS: predniSONE 20 MG TAB PO SCH (08:11)
[2017-04-11] MEDS: Azithromycin 250 MG TAB PO SCH (08:11)
[2017-04-11] MEDS: Furosemide 20 MG/2 ML VIAL SLOW IVP SCH (08:11)
[2017-04-11] MEDS: Famotidine 20 MG TAB PO SCH ×2 (08:11→20:32)
[2017-04-11] MEDS: Cefdinir 300 MG CAP PO SCH (08:11)
[2017-04-11] MEDS: guaiFENesin ER 600 MG TAB PO SCH ×3 (08:11→20:32)
[2017-04-11] MEDS: Docusate 100 MG CAP PO SCH ×2 (08:16→20:33)
[2017-04-11] MEDS: Enoxaparin Sodium 40 MG/0.4 ML SYRINGE SC SCH (08:16)
--- NOTE | 2017-04-11 08:24 | PRG ---
DATE OF SERVICE: 04/11/2017 Mr. Torres is feeling a little better. PHYSICAL EXAMINATION: VITAL SIGNS: He is afebrile, heart rate is 76, respiratory rate is 18, oximetry is 92 on 1 liter, bl ood pressure 155/90. LUNGS: Lungs are remarkable for faint wheezes. HEART: Regular rhythm. ABDOMEN: Abdomen is soft. LABORATORY DATA: There is no new lab today. IMPRESSION: 1. Chronic obstructive pulmonary disease exacerbation ? restrictive airways. 2. Influenza. 3. Obesity. 4. Probable sleep apnea. He asked me to set up a sleep study as an outpatient. We will do this when he follows up with us in the office. I have asked him to ambulate with an oxygen tank today. If he does well we will check room air sat i n the morning and hopefully we can discharge him home. He has a nebulizer at home. We will need to prescribe ipratropium and albuterol 4 times a day as well as a prednisone taper.
--- NOTE | 2017-04-11 12:44 | PDOC.PN ---
- Subjective Encounter Start Date: 04/11/17 Encounter Start Time: 11:30 Subjective: feels better -: is on nasal canula with spo2 of around 92% - Objective Resuscitation Status: Resuscitation Status FULL:Full Resuscitation MAR Reviewed: Yes Vital Signs & Weight: Vital Signs (12 hours) Temp Pulse Resp BP Pulse Ox 04/11/17 08:27 81 20 92 L 04/11/17 08:00 97.5 F L 76 18 04/11/17 07:29 98.3 F 81 16 122/81 92 L Weight Weight 156 lb 12.8 oz I&O: 04/10/17 04/11/17 04/12/17 06:59 06:59 06:59 Intake Total 2430 480 Balance 2430 480 Result Diagrams: 04/09/17 04:24 04/10/17 08:40 Phys Exam - Physical Examination HEENT: PERRLA, moist MMs Neck: no JVD, supple Respiratory: no wheezing, no rales Cardiovascular: RRR, no significant murmur Gastrointestinal: soft, non-tender, positive bowel sounds Musculoskeletal: no edema, pulses present Neurological: non-focal, moves all 4 limbs Psychiatric: A&O x 3 Dx/Plan (1) COPD exacerbation Code(s): J44.1 - CHRONIC OBSTRUCTIVE PULMONARY DISEASE W (ACUTE) EXACERBATION Status: Acute (2) Influenza A Code(s): J10.1 - FLU DUE TO OTH IDENT INFLUENZA VIRUS W OTH RESP MANIFEST Status: Resolved (3) NEHEMIAH (obstructive sleep apnea) Code(s): G47.33 - OBSTRUCTIVE SLEEP APNEA (ADULT) (PEDIATRIC) Status: Suspected (4) Hyperkalemia Code(s): E87.5 - HYPERKALEMIA Status: Resolved - Plan is on omnicef and oral prednisone, lasix iv 20mg daily -: to amb in hallway -: taper and dc oxygen for spo2 of 90% -: likely dc in am -: outpt sleep study * . Review of Systems - Medications/Allergies Allergies/Adverse Reactions: Allergies Allergy/AdvReac Type Severity Reaction Status Date / Time No Known Allergies Allergy Verified 04/05/17 14:24 Medications: Current Medications Acetaminophen (Tylenol) 650 mg [place] Q4H PRN PRN Reason: Headache/Fever or Pain Acetaminophen (Tylenol) 1,000 mg PO Q6H PRN PRN Reason: PAIN/FEVER 1ST LINE Last Admin: 04/05/17 16:04 Dose: 1,000 mg Albuterol/Ipratropium (Duoneb) 3 ml NEB [id number] PRN PRN Reason: SOB &/or Wheezing Albuterol/Ipratropium (Duoneb) 3 ml NEB [id number] [facility] Last Admin: 04/11/17 08:27 Dose: 3 ml Bisacodyl (Dulcolax) 10 mg PO DAILYPRN PRN PRN Reason: Constipation Cefdinir (Omnicef) 600 mg PO DAILY [facility] Last Admin: 04/11/17 08:11 Dose: 600 mg Docusate Sodium (Colace) 100 mg PO BID [facility] Last Admin: 04/11/17 08:16 Dose: Not Given Enoxaparin Sodium (Lovenox) 40 mg SC 0900 [facility] Last Admin: 04/11/17 08:16 Dose: Not Given Famotidine (Pepcid) 20 mg PO BID [facility] Last Admin: 04/11/17 08:11 Dose: 20 mg Furosemide (Lasix) 20 mg SLOW IVP DAILY [facility] Last Admin: 04/11/17 08:11 Dose: 20 mg Guaifenesin (Mucinex) 600 mg PO TID [facility] Last Admin: 04/11/17 08:11 Dose: 600 mg Guaifenesin (Robitussin Sf) 200 mg PO Q4H PRN PRN Reason: Cough Last Admin: 04/09/17 08:14 Dose: 200 mg Ibuprofen (Motrin) 800 mg PO TIDPRN PRN PRN Reason: FEVER/PAIN 2ND LINE Last Admin: 04/10/17 20:35 Dose: 800 mg Ondansetron HCl (Zofran Odt) 4 mg PO Q6H PRN PRN Reason: Nausea/Vomiting Ondansetron HCl (Zofran) 4 mg IVP Q6H PRN PRN Reason: Nausea/Vomiting Prednisone (Prednisone) 40 mg PO DAILY [facility] Last Admin: 04/11/17 08:11 Dose: 40 mg Sodium Chloride (Flush - Normal Saline) 10 ml IVF PRN PRN PRN Reason: Saline Flush Sodium Chloride (Flush - Normal Saline) 10 ml IVF BID [facility] Last Admin: 04/11/17 08:17 Dose: 10 ml
[2017-04-12] MEDS: Famotidine 20 MG TAB PO SCH ×2 (08:44→20:23)
[2017-04-12] MEDS: Furosemide 20 MG/2 ML VIAL SLOW IVP SCH (08:45)
[2017-04-12] MEDS: guaiFENesin ER 600 MG TAB PO SCH ×3 (08:45→20:24)
[2017-04-12] MEDS: predniSONE 20 MG TAB PO SCH (08:45)
[2017-04-12] MEDS: Docusate 100 MG CAP PO SCH ×2 (08:45→20:17)
[2017-04-12] MEDS: Cefdinir 300 MG CAP PO SCH (08:45)
[2017-04-12] MEDS: Enoxaparin Sodium 40 MG/0.4 ML SYRINGE SC SCH (08:46)
--- NOTE | 2017-04-12 12:51 | PDOC.PN ---
- Subjective Encounter Start Date: 04/12/17 Encounter Start Time: 11:30 Subjective: says he is much about the same as yesterday -: no wheezing now, is amb in room - Objective Resuscitation Status: Resuscitation Status FULL:Full Resuscitation MAR Reviewed: Yes Vital Signs & Weight: Vital Signs (12 hours) Temp Pulse Resp BP Pulse Ox 04/12/17 08:01 97.6 F 92 18 136/84 88 L 04/12/17 06:24 88 16 87 L Weight Weight 156 lb 12.8 oz I&O: 04/11/17 04/12/17 04/13/17 06:59 06:59 06:59 Intake Total 480 Balance 480 Result Diagrams: 04/09/17 04:24 04/10/17 08:40 Phys Exam - Physical Examination HEENT: PERRLA, moist MMs Neck: no JVD, supple Respiratory: no wheezing, no rales Cardiovascular: RRR, no significant murmur Gastrointestinal: soft, non-tender, positive bowel sounds Musculoskeletal: no edema, pulses present Neurological: non-focal, moves all 4 limbs Psychiatric: A&O x 3 Dx/Plan (1) COPD exacerbation Code(s): J44.1 - CHRONIC OBSTRUCTIVE PULMONARY DISEASE W (ACUTE) EXACERBATION Status: Acute (2) Influenza A Code(s): J10.1 - FLU DUE TO OTH IDENT INFLUENZA VIRUS W OTH RESP MANIFEST Status: Resolved (3) NEHEMIAH (obstructive sleep apnea) Code(s): G47.33 - OBSTRUCTIVE SLEEP APNEA (ADULT) (PEDIATRIC) Status: Suspected (4) Hyperkalemia Code(s): E87.5 - HYPERKALEMIA Status: Resolved - Plan resolving copd flare up -: has sleep apnea -: might need home oxygen -: check room air spo2 off oxygen -: nebs, steroids and omnicef now * . Review of Systems - Medications/Allergies Allergies/Adverse Reactions: Allergies Allergy/AdvReac Type Severity Reaction Status Date / Time No Known Allergies Allergy Verified 04/05/17 14:24 Medications: Current Medications Acetaminophen (Tylenol) 650 mg [place] Q4H PRN PRN Reason: Headache/Fever or Pain Acetaminophen (Tylenol) 1,000 mg PO Q6H PRN PRN Reason: PAIN/FEVER 1ST LINE Last Admin: 04/05/17 16:04 Dose: 1,000 mg Albuterol/Ipratropium (Duoneb) 3 ml NEB [id number] PRN PRN Reason: SOB &/or Wheezing Albuterol/Ipratropium (Duoneb) 3 ml NEB [id number] [facility] Last Admin: 04/12/17 06:24 Dose: 3 ml Bisacodyl (Dulcolax) 10 mg PO DAILYPRN PRN PRN Reason: Constipation Cefdinir (Omnicef) 600 mg PO DAILY [facility] Last Admin: 04/12/17 08:45 Dose: 600 mg Docusate Sodium (Colace) 100 mg PO BID [facility] Last Admin: 04/12/17 08:45 Dose: Not Given Enoxaparin Sodium (Lovenox) 40 mg SC 0900 [facility] Last Admin: 04/12/17 08:46 Dose: 40 mg Famotidine (Pepcid) 20 mg PO BID [facility] Last Admin: 04/12/17 08:44 Dose: 20 mg Furosemide (Lasix) 20 mg SLOW IVP DAILY [facility] Last Admin: 04/12/17 08:45 Dose: 20 mg Guaifenesin (Mucinex) 600 mg PO TID [facility] Last Admin: 04/12/17 08:45 Dose: 600 mg Guaifenesin (Robitussin Sf) 200 mg PO Q4H PRN PRN Reason: Cough Last Admin: 04/09/17 08:14 Dose: 200 mg Ibuprofen (Motrin) 800 mg PO TIDPRN PRN PRN Reason: FEVER/PAIN 2ND LINE Last Admin: 04/10/17 20:35 Dose: 800 mg Ondansetron HCl (Zofran Odt) 4 mg PO Q6H PRN PRN Reason: Nausea/Vomiting Ondansetron HCl (Zofran) 4 mg IVP Q6H PRN PRN Reason: Nausea/Vomiting Prednisone (Prednisone) 40 mg PO DAILY [facility] Last Admin: 04/12/17 08:45 Dose: 40 mg Sodium Chloride (Flush - Normal Saline) 10 ml IVF PRN PRN PRN Reason: Saline Flush Sodium Chloride (Flush - Normal Saline) 10 ml IVF BID [facility] Last Admin: 04/12/17 08:46 Dose: 10 ml
--- NOTE | 2017-04-12 22:41 | PRG ---
DATE OF SERVICE: 04/12/2017 SUBJECTIVE: Mr. Torres did reasonably well overnight, although he said he woke up short of breath th is morning. He improved after his first breathing treatment. OBJECTIVE: VITAL SIGNS: He is afebrile. Oximetry is 90 on 1 liter, heart rate is 89, respiratory rate 16, bloo d pressure 136/84. LUNGS: Remarkable for distant breath sounds. He is not wheezing. CARDIOVASCULAR: Regular rhythm. ABDOMEN: Soft. LABORATORY DATA: No new lab. IMPRESSION: 1. Chronic obstructive pulmonary disease exacerbation versus asthma. We will need PFTs once he is b ack to normal. 2. Influenza. 3. Probable obstructive sleep apnea. He will need a sleep study set up when he is discharged. I wi ll have him seen in the office and we will set up that at that time. If his oximetry on room air 89-90 tomorrow on discharge, he does not need oxygen. I will be happy to follow him within 10 days to 2 weeks. He has a nebulizer at home. We will send him home with nebul izer treatments and slow steroid taper, few more days of antimicrobial therapy. I answered all of hi s and his 's questions.
[2017-04-13] MEDS: guaiFENesin ER 600 MG TAB PO SCH (08:16)
[2017-04-13] MEDS: Cefdinir 300 MG CAP PO SCH (08:16)
[2017-04-13] MEDS: predniSONE 20 MG TAB PO SCH (08:16)
[2017-04-13] MEDS: Docusate 100 MG CAP PO SCH (08:17)
[2017-04-13] MEDS: Furosemide 20 MG/2 ML VIAL SLOW IVP SCH (08:17)
[2017-04-13] MEDS: Enoxaparin Sodium 40 MG/0.4 ML SYRINGE SC SCH (08:17)
[2017-04-13 08:18] VITALS: BP 117/80; TEMP 97.9
[2017-04-13] MEDS: Famotidine 20 MG TAB PO SCH (08:18)
--- NOTE | 2017-04-13 12:26 | PRG ---
DATE OF SERVICE: 04/13/2017 Mr. Torres did well overnight. He feels like he can ambulate without difficulty and is stable to go home. His oximetry has been 88 to 89 on 1 liter. I have taken his oxygen off and we will check him again on room air to see if he qualifies for home O2. He has a nebulizer at home. He needs to go ho me with Omnicef, a 2 week prednisone taper starting at 40 mg a day, nebulizer treatments 4 times a da y. I will see him in a couple of weeks. He will call my office Sunday to see if we can set him up for a sleep study prior to his visit with me. IMPRESSION: 1. Chronic obstructive pulmonary disease exacerbation. 2. Sleep apnea that has never been formally diagnosed. PLAN: Follow up in 2 weeks.
--- NOTE | 2017-04-13 12:47 | PDOC.PN ---
- Subjective Encounter Start Date: 04/13/17 Encounter Start Time: 11:10 Subjective: is ambulating without oxygen, feels good - Objective Resuscitation Status: Resuscitation Status FULL:Full Resuscitation MAR Reviewed: Yes Vital Signs & Weight: Vital Signs (12 hours) Temp Pulse Resp BP Pulse Ox 04/13/17 08:17 97.9 F 93 20 117/80 89 L 04/13/17 08:00 97.9 F 93 20 88 L 04/13/17 06:27 98 16 90 L Weight Weight 156 lb 12.8 oz I&O: 04/12/17 04/13/17 04/14/17 06:59 06:59 06:59 Intake Total 2160 480 Balance 2160 480 Result Diagrams: 04/09/17 04:24 04/10/17 08:40 Phys Exam - Physical Examination HEENT: PERRLA, moist MMs Neck: no JVD, supple Respiratory: no wheezing, no rales Cardiovascular: RRR, no significant murmur Gastrointestinal: soft, non-tender, positive bowel sounds Musculoskeletal: no edema, pulses present Neurological: non-focal, moves all 4 limbs Psychiatric: A&O x 3 Dx/Plan (1) COPD exacerbation Code(s): J44.1 - CHRONIC OBSTRUCTIVE PULMONARY DISEASE W (ACUTE) EXACERBATION Status: Acute (2) Influenza A Code(s): J10.1 - FLU DUE TO OTH IDENT INFLUENZA VIRUS W OTH RESP MANIFEST Status: Resolved (3) NEHEMIAH (obstructive sleep apnea) Code(s): G47.33 - OBSTRUCTIVE SLEEP APNEA (ADULT) (PEDIATRIC) Status: Suspected (4) Hyperkalemia Code(s): E87.5 - HYPERKALEMIA Status: Resolved - Plan steroid taper -: omnicef -: to f/u with in 2 weeks -: may dc home if ok with * .
--- NOTE | 2017-04-14 20:38 | DIS ---
DATE OF ADMISSION: 04/05/2017 DATE OF DISCHARGE: 04/13/2017 DISCHARGE DISPOSITION: To home. PRIMARY DISCHARGE DIAGNOSES: Acute chronic obstructive pulmonary disease exacerbation, resolving; in fluenza A and obstructive sleep apnea for outpatient sleep study. PROCEDURES DONE DURING HOSPITALIZATION: The patient had initial chest x-ray done on the day of admis keerthi showed no acute cardiopulmonary abnormalities. Blood cultures x2, no growth. Influenza was pos itive for A antigen on the nasal swab. Hemoglobin and hematocrit 13 and 43, platelet count 199. Blo od gas on arrival showed a pH of 7.22, PCO2 of 74 and PO2 of 141. DISCHARGE MEDICATIONS: Prednisone taper over the course of 23 days starting at 10 mg 3 times daily, DuoNebs q.6 hourly, Pepcid 20 mg twice daily and Omnicef 600 mg daily for another 3 days. INPATIENT CONSULTS: Dr. Wakefield for Pulmonology. BRIEF COURSE DURING HOSPITALIZATION: The patient initially got admitted on the with complaints of shortness of breath. He was also positive for flu influenza A. He has had multiple nebulizations given despite, which was acidotic with hypoxia and hypercapnia. He was placed on BiPAP in [facility]. He was on broad-spectrum IV antibiotics along with steroids. He has had consultation with Dr. Rockwell/ [facility] for Pulmonology. The patient has had very slow and gentle recovery. He appears to have underl alfredito sleep apnea as well and needs to follow up with Dr. Wakefield in 2-4 weeks for outpatient sleep stud y. A prescription for a long steroid taper has been given to him. Likely, he will see Dr. Wakefield bef ore the steroid taper ends. He is saturating 90% on room air and has been cleared for discharge toda y by [facility]. Please see a [id number] documentation on [facility] for the day of discharge.
== END 2017-04-13 15:30 | disposition home or self-care (01) | DRG 189 ==
LOC: ERS 11:03 → IMCU/EMU 13:23 → T4-A 04-07 15:56
PROVIDERS: ADMIT Emergency Medicine; ATTEND Emergency Medicine
PROC: 5A09357 Assistance with Respiratory Ventilation, Less than 24 Consecutive Hours, Continuous Positive Airway Pressure (ICD-10-PCS; principal; 2017-04-05)
DX: J96.02 Acute respiratory failure with hypercapnia (principal); E87.2 Acidosis; E66.01 Morbid (severe) obesity due to excess calories; J44.1 Chronic obstructive pulmonary disease with (acute) exacerbation; J11.1 Influenza due to unidentified influenza virus with other respiratory manifestations; J96.01 Acute respiratory failure with hypoxia; F17.210 Nicotine dependence, cigarettes, uncomplicated; Z68.22 Body mass index [BMI] 22.0-22.9, adult; G47.33 Obstructive sleep apnea (adult) (pediatric); E87.70 Fluid overload, unspecified; E87.5 Hyperkalemia
CPT/HCPCS: 36415; 80048; 82805; 83605; 83880; 85025; 93005; 94640; 94660; 96360; A4216; G8978-GP-CJ; G8979-GP-CJ; G8980-GP-CJ; G8987-GO-CH; G8988-GO-CH; G8989-GO-CH; J0456; J0696; J1650; J1940; J2920; J7050; J7506; J7620

== ENCOUNTER 2017-05-01 07:57 | Outpatient (CLI) | payer BC ==
--- NOTE | 2017-05-01 09:39 | RAD ---
RADIOGRAPH CHEST 2 VIEWS: HISTORY: 57-year-old male with dyspnea. FINDINGS: There is no air space density, pulmonary edema, pleural effusion, pneumothorax, or cardiomegaly. IMPRESSION: No acute cardiopulmonary findings. jn [] POS: MATTHIEU
== END 2017-05-01 07:58 | disposition home or self-care (01) ==
LOC: RAD 07:57
PROVIDERS: ATTEND Internal Medicine Critical Care Medicine
DX: R06.00 Dyspnea, unspecified (principal)
CPT/HCPCS: 71046

== ENCOUNTER 2017-05-19 20:30 | Outpatient (CLI) | payer BC | END 2017-05-19 20:31 | disposition home or self-care (01) | LOC: SLEEPLAB 20:30 | PROVIDERS: ATTEND Internal Medicine Critical Care Medicine | DX: G47.33 Obstructive sleep apnea (adult) (pediatric) (principal); R06.83 Snoring; I10 Essential (primary) hypertension | CPT/HCPCS: 95811 ==

== ENCOUNTER 2019-01-10 10:40 | Outpatient (CLI) | payer BC ==
--- NOTE | 2019-01-10 10:56 | RAD ---
Exam: Chest 2 views HISTORY:Dyspnea Comparison: 05/01/2017 FINDINGS: Lungs: No masses or consolidation. Cardiac silhouette: Normal size Pulmonary vessels: Normal Pleural Spaces: Clear Pneumothorax: None Osseous abnormalities: None of acuity. IMPRESSION: No focal consolidation.
== END 2019-01-10 10:41 | disposition home or self-care (01) ==
LOC: RAD 10:40
PROVIDERS: ATTEND Internal Medicine Critical Care Medicine
DX: R06.00 Dyspnea, unspecified (principal)
CPT/HCPCS: 71046

== ENCOUNTER 2022-11-14 13:16 | Outpatient (CLI) | payer BC, OTHER | END 2022-11-14 13:17 | disposition home or self-care (01) | LOC: RAD 13:16 | PROVIDERS: ATTEND Internal Medicine Critical Care Medicine | DX: R06.00 Dyspnea, unspecified (principal) | CPT/HCPCS: 71046 ==